=== PATIENT | male | born 1980 | race Caucasian/White ===

== ENCOUNTER 2018-07-07 18:33 | Emergency (ER) | payer SELFPAY ==
[~2018-07-07] VITALS: Ht 182.9 cm; Wt 204.1 kg
--- NOTE | 2018-07-07 21:29 | Diagnostic Imaging Report ---
EXAM: KNEE LEFT THREE VIEWS, AP, lateral and oblique INDICATION: Fell down on concrete COMPARISON: None FINDINGS: BONES: No acute fractures. Calcification adjacent to the right femoral condyle consistent with old injury. JOINTS: No malalignment. Mild lateral compartment enthesophyte. SOFT TISSUES: Normal IMPRESSION: No acute left knee fracture. Signed by: Dr. Zarina lBedsoe M.D. on 07/07/2018 9:25 PM
--- NOTE | 2018-07-07 21:30 | Diagnostic Imaging Report ---
EXAM: KNEE RIGHT THREE VIEWS, AP, lateral and oblique INDICATION: Fell down along create COMPARISON: Right knee x-ray July 07, 2018 FINDINGS: BONES: No acute fractures. JOINTS: No malalignment. SOFT TISSUES: Normal IMPRESSION: No acute right knee fracture Signed by: Dr. Zarina Bledsoe M.D. on 07/07/2018 9:27 PM
== END 2018-07-07 22:18 | disposition home or self-care (01) ==
LOC: ER 18:33
DX: S80.02XA Contusion of left knee, initial encounter (principal); S80.01XA Contusion of right knee, initial encounter; W01.0XXA Fall on same level from slipping, tripping and stumbling without subsequent striking against object, initial encounter; Y92.008 Other place in unspecified non-institutional (private) residence as the place of occurrence of the external cause
CPT/HCPCS: 99283